=== PATIENT | female | born 1960 | race Caucasian/White ===

== ENCOUNTER → 2016-07-02 | Outpatient (CLI) | payer BC ==
[~2016-07-02] MED LIST: ASPCH81X PO; OMEG10007 PO; PEDICHW44 PO
--- NOTE | 2016-07-03 13:45 | MAMMOGRAPHY REPORT ---
BILATERAL DIGITAL SCREENING MAMMOGRAM TOMOSYNTHESIS WITH CAD: 07/02/2016 CLINICAL HISTORY: Routine screening. Patient has no complaints. TECHNIQUE: Breast tomosynthesis in addition to standard 2D mammography was performed. Current study was also evaluated with a Computer Aided Detection (CAD) system. COMPARISON: Comparison is made to exams dated: 06/01/2014 mammogram, 02/08/2013 mammogram - [facility], 08/21/2006, and 08/23/2007. BREAST COMPOSITION: There are scattered areas of fibroglandular density in both breasts. FINDINGS: There is a nodular 7 mm asymmetry seen within the right lateral breast at approximately 9 :00, best seen on the cc view. Recommend spot compression tomosynthesis views and possible breast u ltrasound for further evaluation. The remainder of both breasts are stable compared to prior exams, without suspicious masses, calcifi cations, or areas of architectural distortion noted. IMPRESSION: ACR BI-RADS CATEGORY 0: INCOMPLETE EVALUATION: NEED ADDITIONAL IMAGING EVALUATION Right breast asymmetry, for which additional imaging evaluation is recommended. The patient will be called to schedule an appointment. Approximately 10% of breast cancers are not detected with mammography. A negative mammographic repor t should not delay biopsy if a clinically suggestive mass is present. Zenobia Gupta M.D. ah/:07/02/2016 15:47:21 Resource Paraprofessional: Marta ARAIZA)(M), [facility] letter sent: Addl Imaging 0 BI-RADS Code: ACR BI-RADS Category 0: Incomplete Evaluation: Need Additional Imaging Evaluation
== END | disposition home or self-care (01) ==
LOC: C.MAMM 07:46
PROVIDERS: ATTEND Nurse Practitioner
DX: Z12.31 Encounter for screening mammogram for malignant neoplasm of breast (principal); N64.89 Other specified disorders of breast

== ENCOUNTER → 2016-07-07 | Day surgery (SDC) | payer BC ==
[2016-06-19 11:50] VITALS: Ht 165.1 cm; Wt 83.6 kg
[~2016-07-07] VITALS: Ht 165.1 cm; Wt 83.6 kg
[~2016-07-07] MED LIST changes: +LIDOCAINE HCL 2% 2 ML VIAL (20MG/ML) ONE; +MIDAZOLAM HCL 1 MG/ML 2ML VIAL ONE; +ONDANSETRON INJ 2 MG/ML 2 ML VIAL ONE; +PROPOFOL IV EMULSION 10 MG/ML 20 ML VIAL IV ONE; +SODIUM CHLORIDE 0.9% 500ML 500 ML IV ONE
[2016-07-07 09:37] VITALS: TEMP 36.8
--- NOTE | 2016-07-07 09:52 | Endo History and Physical ---
History & Physical Date of Service: Jul 07, 2016. Chief Complaint: Screening Referring Physician: Jinny Kirkpatrick History of Present Illness 55 yo CF who presents for screening colonoscopy. Past Surgical History Hx Cardiac Surgery: No Hx Internal Defibrillator: No Hx Pacemaker: No Hx Abdominal Surgery: Yes (TUBAL LIGATION, LAP CHOLEY) Hx of Implantable Prosthesis: No Hx Post-Op Nausea and Vomiting: No Hx Cancer Surgery: No Hx Thoracic Surgery: Yes (LUNG BIOPSY) Hx Orthopedic: No Hx Urinary Tract Surgery: No Family History None Social History Smoking Status: Never Smoker Hx Substance Use: No Hx Alcohol Use: Yes (OCCASSIONALLY) Allergies Coded Allergies: No Known Allergies (Verified , 06/19/16) Current Medications Reported Home Medications Medications Dose Route/Sig Max Daily Dose Days Date Category Aspirin Chewable (Aspirin) 81 Mg Chew 81 Mg PO QAM 06/19/16 Reported Flintstones Plus Iron (Pediatric Multiple Vitamins W/) 1 Chw Chw 1 Tab PO QAM 06/19/16 Reported [place]-3 (Fish Oil) 1 Ea Cap 1 Cap PO QAM 06/19/16 Reported Vital Signs Weight (Kilograms): 83.64 Height (Feet): 5 Height (Inches): 5 Date Time Temp Pulse Resp B/P Pulse Ox O2 Delivery O2 Flow Rate FiO2 07/07/16 09:37 36.8 80 20 135/78 98 Room Air Physical Exam General Appearance: WD/WN, no apparent distress Respiratory/Chest: Auscultation: breath sounds normal Cardiovascular: Heart Auscultation: RRR Abdomen: Bowel Sounds: normal Inspection & Palpation: soft, non-distended, no tenderness, guarding & rebound Assessment and Plan Assessment: 55 yo CF who presents for screening colonoscopy. Plan: Proceed with colonoscopy.
--- NOTE | 2016-07-07 10:09 | Discharge Instructions ---
Endoscopy Patient Instructions Date / Procedure(s) Performed Jul 07, 2016. Colonoscopy Allergy Information Coded Allergies: No Known Allergies (Verified , 06/19/16) Discharge Date / Findings Jul 07, 2016. Diverticulosis Internal hemorrhoids Medication Instructions Stopped Medication(s): ASA, Vitamins OK to resume all medications today as prescribed. Reported Home Medications Medications Dose Route/Sig Max Daily Dose Days Date Category Aspirin Chewable (Aspirin) 81 Mg Chew 81 Mg PO QAM 06/19/16 Reported Flintstones Plus Iron (Pediatric Multiple Vitamins W/) 1 Chw Chw 1 Tab PO QAM 06/19/16 Reported [place]-3 (Fish Oil) 1 Ea Cap 1 Cap PO QAM 06/19/16 Reported Provider Instructions Activity Restrictions - No exercising or heavy lifting for 24 hours. - Do not drink alcohol the day of the procedure. - Do not drive a car or operate machinery until the day after the procedure. - Do not make any important decisions or sign important papers in 24 hours after the procedure. Following Day: - Return to full activity which may include returning to work/school. Diet Start your diet with liquids and light foods (jello, soup, juice, toast). Then eat your usual diet if not nauseated. Treatment For Common After Affects For mild abdominal pain, bloating, or excessive gas: - Rest - Eat lightly - Lie on right side Follow-Up Information Follow-up with Jinny Kirkpatrick as scheduled Anesthesia Information What You Should Know You have had a procedure that required some medicine to reduce anxiety and discomfort. This treatment is called moderate sedation. After receiving the treatment, you may be sleepy, but you will be able to breathe on your own. The effects of the treatment may last for several hours. Follow these instructions along with Activity/Diet recommendations noted above: * Do NOT do anything where dizziness or clumsiness would be dangerous. * Rest quietly at home today, then you can be up and about tomorrow. * Have a responsible person stay with you the rest of today. * You may have had an I.V. today. If so, you may take the dressing off later today. Recommendations Call your doctor if: * Trouble breathing * Continuous vomiting for more than 24 hours * Temperature above 101 degrees * Severe abdominal pain or bloating * Pain not relieved by pain medicine ordered * There is increased drainage or redness from any incision * A large amount of rectal bleeding greater than 2-3 tablespoons. (If you had a polyp/s removed or have hemorrhoids, a small amount of blood - from the rectum is to be expected.) * You have any unanswered questions or concerns. IN THE EVENT OF A SERIOUS EMERGENCY, GO TO THE NEAREST EMERGENCY ROOM Your discharge instructions were prepared by provider Gray Bernal. Patient Instructions Signature Page Darline Mancini Patient (or Guardian) Signature/Date: I have read and understand the instructions given to me by my caregivers. Caregiver/RN/Doctor Signature/Date: The above-named patient and/or guardian has received patient instructions on this date. + Original Patient Signature Page (only) stays with chart. Please make copy for patient.
--- NOTE | 2016-07-07 10:12 | GI REPORT ---
Procedure Date: 07/07/2016 9:17 AM Procedure: Colonoscopy Indications: Screening for colorectal malignant neoplasm Medicines: Monitored Anesthesia Care Complications: No immediate complications. Estimated Blood Loss: Estimated blood loss: none. Procedure: Pre-Anesthesia Assessment: - Prior to the procedure, a History and Physical was performed, and patient medications and allergies were reviewed. The patient's tolerance of previous anesthesia was also reviewed. The risks and benefits of the procedure and the sedation options and risks were discussed with the patient. All questions were answered, and informed consent was obtained. Prior Anticoagulants: The patient has taken aspirin, last dose was 7 days prior to procedure. ASA Grade Assessment: II - A patient with mild systemic disease. After reviewing the risks and benefits, the patient was deemed in satisfactory condition to undergo the procedure. After I obtained informed consent, the scope was passed under direct vision. Throughout the procedure, the patient's blood pressure, pulse, and oxygen saturations were monitored continuously. The scope was introduced through the anus and advanced to the terminal ileum. The colonoscopy was performed without difficulty. The patient tolerated the procedure well. The quality of the bowel preparation was good. The terminal ileum, ileocecal valve, appendiceal orifice, and rectum were photographed. Findings: Multiple small-mouthed diverticula were found in the sigmoid colon. Non-bleeding internal hemorrhoids were found during retroflexion. The hemorrhoids were small. Impression: - Diverticulosis in the sigmoid colon. - Non-bleeding internal hemorrhoids. - No specimens collected. Recommendation: - Resume previous diet. - Continue present medications. - Repeat colonoscopy in 10 years for surveillance based on pathology results. - Return to primary care physician as previously scheduled. Gray Bernal DO 07/07/2016 10:10:43 AM This report has been signed electronically. Note Initiated On: 07/07/2016 9:17 AM
[2016-07-07 10:44] VITALS: BP 124/73; PULSE 68; O2SAT 67
--- NOTE | 2016-07-07 11:20 | Anesthesiology Progress Note ---
Anesthesia Post Op Note Date & Time Jul 07, 2016 at 11:19 Vital Signs Pain Intensity: 0 Vital Signs Past 12 Hours Date Time Temp Pulse Resp B/P Pulse Ox O2 Delivery O2 Flow Rate FiO2 07/07/16 10:44 68 20 124/73 67 Room Air 07/07/16 10:29 65 20 112/59 65 Room Air 07/07/16 10:12 100 20 102/51 98 Room Air 07/07/16 09:37 36.8 80 20 135/78 98 Room Air Notes Mental Status: alert / awake / arousable, participated in evaluation Pt Amnestic to Procedure: Yes Nausea / Vomiting: adequately controlled Pain: adequately controlled Airway Patency, RR, SpO2: stable & adequate BP & HR: stable & adequate Hydration State: stable & adequate Anesthetic Complications: no major complications apparent
== END | disposition home or self-care (01) ==
LOC: C.GI 08:44
PROVIDERS: ATTEND Internal Medicine
DX: Z12.11 Encounter for screening for malignant neoplasm of colon (principal); K57.30 Diverticulosis of large intestine without perforation or abscess without bleeding; K64.8 Other hemorrhoids; Z98.51 Tubal ligation status; Z90.49 Acquired absence of other specified parts of digestive tract; Z68.30 Body mass index [BMI] 30.0-30.9, adult

== ENCOUNTER → 2016-07-09 | Outpatient (CLI) | payer BC ==
[~2016-07-09] MED LIST changes: -LIDOCAINE HCL 2% 2 ML VIAL (20MG/ML) ONE; -MIDAZOLAM HCL 1 MG/ML 2ML VIAL ONE; -ONDANSETRON INJ 2 MG/ML 2 ML VIAL ONE; -PROPOFOL IV EMULSION 10 MG/ML 20 ML VIAL IV ONE; -SODIUM CHLORIDE 0.9% 500ML 500 ML IV ONE
--- NOTE | 2016-07-09 13:59 | MAMMOGRAPHY REPORT ---
UNILATERAL RIGHT DIGITAL DIAGNOSTIC MAMMOGRAM TOMOSYNTHESIS AND TARGETED RIGHT ULTRASOUND: 07/09/2016 CLINICAL HISTORY: Callback from screening mammogram for right breast asymmetry. TECHNIQUE: Breast tomosynthesis in addition to standard 2D mammography was performed. Spot abdon opal Right CC and MLO 2-D and tomosynthesis images were obtained. COMPARISON: Comparison is made to exams dated: 07/02/2016 mammogram, 06/01/2014 mammogram, 02/08/2013 ammogram - [facility], and 08/23/2007. BREAST COMPOSITION: There are scattered areas of fibroglandular density in the right breast. FINDINGS: The previously described 11 mm asymmetry seen within the right 8 to 9:00 breast posteriorl y, best seen on the cc view, persists on the spot compression views. The asymmetry is equal in dens ity to the other fibroglandular tissue seen within the breast. No architectural distortion or other suspicious associated finding is noted. Fat is seen interspersed with the asymmetry, suggesting th at it may represent normal fibroglandular tissue which may increased in conspicuity due to differenc es in mammographic technique. Targeted ultrasound was performed of the right 10:00 breast, in the region of the mammographic asymm etry. Sonographically normal tissue is seen, without evidence of a mass or other suspicious sonogra phic abnormality. No sonographic correlate for the mammographic asymmetry is seen. IMPRESSION: ACR-BI-RADS CATEGORY 3: PROBABLY BENIGN, TARGETED ULTRASOUND ACR-BI-RADS CATEGORY 3: MA OBABLY BENIGN The right lateral breast asymmetry persists on the additional views, without corresponding sonograph ic abnormality evident. The asymmetry is probably benign and likely represents normal fibroglandula r tissue. Recommend follow-up diagnostic mammograms and possible ultrasound of the right breast in 6 months to confirm stability. The patient has been verbally notified of the results. Approximately 10% of breast cancers are not detected with mammography. A negative mammographic repor t should not delay biopsy if a clinically suggestive mass is present. Zenobia Gupta M.D. ah/:07/09/2016 12:06:21 Crystallographer: Sara SALAMANCA(R)(M), [facility] letter sent: Follow Up Recommended 3 BI-RADS Code: ACR-BI-RADS Category 3: Probably Benign Ultrasound BI-RADS: ACR-BI-RADS Category 3: P robably Benign
== END | disposition home or self-care (01) ==
LOC: C.MAMM 11:24
PROVIDERS: ATTEND Nurse Practitioner
DX: R92.8 Other abnormal and inconclusive findings on diagnostic imaging of breast (principal)

== ENCOUNTER → 2017-01-06 | Outpatient (CLI) | payer BC ==
--- NOTE | 2017-01-06 15:39 | MAMMOGRAPHY REPORT ---
UNILATERAL RIGHT DIGITAL DIAGNOSTIC MAMMOGRAM TOMOSYNTHESIS WITH CAD AND TARGETED RIGHT ULTRASOUND: CLINICAL HISTORY: Patient presents for follow-up of an asymmetry in the lateral right breast. TECHNIQUE: Right breast CC and MLO 2-D digital and tomosynthesis images were obtained. Current stud y was also evaluated with a Computer Aided Detection (CAD) system. COMPARISON: Comparison is made to exams dated: 07/09/2016 ultrasound, 07/09/2016 mammogram, 07/02/2016 m ammogram, 06/01/2014 mammogram, 02/08/2013 mammogram - [facility], and 08/23/2007. BREAST COMPOSITION: There are scattered areas of fibroglandular density in the right breast. FINDINGS: There is persistence of an 8 x 4 mm nodular asymmetry in the lateral, middle one third of the right breast on the CC view, which appears slightly more elongated but similar in size comparing to the mammograms performed 07/02/2016. The asymmetry at that time measured 6.4 x 3.1 mm but measure ment differences may be positional. There is no associated architectural distortion or microcalcific ation. No new suspicious mass, architectural distortion or cluster of suspicious microcalcifications is seen throughout the remainder of the right breast. Targeted ultrasound was performed about the lateral right breast. Normal fibroglandular tissue is se en without a discrete solid or cystic mass. IMPRESSION: ACR-BI-RADS CATEGORY 3: PROBABLY BENIGN, TARGETED ULTRASOUND ACR-BI-RADS CATEGORY 3: PRO BABLY BENIGN There is a persistent 8 x 4 mm nodular asymmetry in the lateral right breast, without sonographic cor relate identified. This appears slightly more prominent than on the 07/02/2016 mammograms, although the differences may be positional. Options of breast MRI for definitive evaluation versus another ort follow-up diagnostic mammogram/ultrasound were discussed with the patient. She prefers another hort follow-up at this time, and she scheduled a follow-up appointment prior to leaving the [facility] t. Bilateral mammography will be due at that time. Approximately 10% of breast cancers are not detected with mammography. A negative mammographic report should not delay biopsy if a clinically suggestive mass is present. Billie Grover M.D. ay/:01/06/2017 14:47:55 Chip Mixing Machine Operator: Norma SALAMANCA(Theresa)(M), [facility] letter sent: Follow Up Recommended 3 BI-RADS Code: ACR-BI-RADS Category 3: Probably Benign Ultrasound BI-RADS: ACR-BI-RADS Category 3: Pr obably Benign
== END | disposition home or self-care (01) ==
LOC: C.MAMM 08:29
PROVIDERS: ATTEND Nurse Practitioner
DX: N64.89 Other specified disorders of breast (principal)

== ENCOUNTER → 2017-04-14 | Outpatient (CLI) | payer BC ==
[2017-04-14 13:30] LABS: ESTIMATED AVERAGE GLUCOSE 148 mg/dl; HA1C FLAG Normal (Normal)
[2017-04-14 14:11] LABS: BLOOD UREA NITROGEN 11 mg/dl (7-18); BUN/CREATININE RATIO 13.4 (10-20); CARBON DIOXIDE 27 mmol/L (21-32); CHLORIDE 107 mmol/L (98-107); CREATININE 0.85 mg/dl (0.60-1.20); GLUCOSE 149 mg/dl (70-99); POTASSIUM 4.1 mmol/L (3.5-5.1); SODIUM 140 mmol/L (136-145)
== END | disposition home or self-care (01) ==
LOC: C.LABPVFM 07:33
PROVIDERS: ATTEND Nurse Practitioner
DX: E11.9 Type 2 diabetes mellitus without complications (principal)

== ENCOUNTER → 2017-04-16 | Outpatient (CLI) | payer BC | END | disposition home or self-care (01) | LOC: C.LABPVFM 16:14 | PROVIDERS: ATTEND Nurse Practitioner | DX: E11.9 Type 2 diabetes mellitus without complications (principal); R53.83 Other fatigue; R63.5 Abnormal weight gain ==

== ENCOUNTER → 2017-07-09 | Outpatient (CLI) | payer OTHER ==
--- NOTE | 2017-07-09 14:40 | MAMMOGRAPHY REPORT ---
BILATERAL DIGITAL DIAGNOSTIC MAMMOGRAM TOMOSYNTHESIS WITH CAD: 07/09/2017 CLINICAL HISTORY: Six-month follow-up of right breast asymmetry. Due for routine mammography of the left breast. TECHNIQUE: Breast tomosynthesis in addition to standard 2D mammography was performed. Current study was also evaluated with a Computer Aided Detection (CAD) system. Bilateral CC and MLO 2-D and tomosy nthesis images were obtained. COMPARISON: Comparison is made to exams dated: 01/06/2017 ultrasound, 01/06/2017 mammogram, 07/09/2016 ultrasound, 07/09/2016 mammogram, 07/02/2016 mammogram, and 02/08/2013 mammogram - [facility]. BREAST COMPOSITION: There are scattered areas of fibroglandular density in both breasts. FINDINGS: The previously described nodular asymmetry seen within the right lateral breast on the cc view is decreased in size compared to the prior exam, currently measuring 4 x 4 mm, previously measur ing 8 x 4 mm when measuring with a similar technique. Given the decrease in size, the mass is consid ered benign and may represent a resolving cyst. The remainder of both breasts are stable compared to prior exams, without suspicious masses, calcifications, or areas of architectural distortion noted. Focal asymmetry in the right upper outer quadrant is stable dating back to at least the 2012 exam, a nd has the appearance of fibroglandular tissue on the tomosynthesis images. IMPRESSION: ACR BI-RADS CATEGORY 2: BENIGN The right lateral breast asymmetry is decreased in size compared to prior exams, and is considered be nign and may represent a decreasing cyst or other benign mass. There is no mammographic evidence of malignancy in either breast. A 1 year screening mammogram is recommended. The patient has been verba lly notified of the results. Approximately 10% of breast cancers are not detected with mammography. A negative mammographic report should not delay biopsy if a clinically suggestive mass is present. Zenobia Gupta M.D. /:07/09/2017 09:11:27 Sap Basis Administrator: Sara SALAMANCA(R)(M), [facility] letter sent: Normal 1/2 BI-RADS Code: ACR BI-RADS Category 2: Benign
== END | disposition home or self-care (01) ==
LOC: C.MAMM 08:45
PROVIDERS: ATTEND Nurse Practitioner
DX: R92.8 Other abnormal and inconclusive findings on diagnostic imaging of breast (principal)

== ENCOUNTER 2017-09-03 16:08 | Emergency (ER) | payer OTHER ==
[~2017-09-03] VITALS: Ht 165.1 cm; Wt 91.2 kg
[2017-09-03 16:11] VITALS: Ht 165.1 cm; Wt 91.2 kg
[2017-09-03] MEDS ORDERED: KETOROLAC TROMETHAMINE 15 MG/ML VIAL IV STA (16:27)
[2017-09-03] MEDS ORDERED: KETOROLAC TROMETHAMINE 30 MG/ML VIAL ONE (16:34)
[2017-09-03] MEDS ORDERED: OPTIRAY 320 IV PRN (16:45)
[2017-09-03 17:06] LABS: BASO % 0.3 %; BASO ABS # 0.03 K/uL (0-0.2); EOS % 1.3 %; EOS ABS # 0.14 K/uL (0-0.5); HEMATOCRIT 38.8 % (37-47); IG# 0.02 K/uL (0.00-0.02); LYMPH % 14.2 %; LYMPH ABS # 1.51 K/uL (1.2-3.4); MEAN CELL VOLUME 81.3 fL (80-100); MEAN CORPUSCULAR HEMOGLOBIN 29.4 pg (25-34); MEAN CORPUSCULAR HGB CONC 36.1 g/dl (32-36); MEAN PLATELET VOLUME 9.3 fL (7.4-10.4); MONO % 8.3 %; MONO ABS # 0.88 K/uL (0.11-0.59); NEUT % 75.7 %; NEUT ABS # 8.05 K/uL (1.4-6.5); PLATELET COUNT 258 K/uL (130-400); RED CELL DISTRIBUTION WIDTH CV 12.7 % (11.5-14.5); RED CELL DISTRIBUTION WIDTH SD 38.2 fL (36.4-46.3); WHITE BLOOD COUNT 10.63 K/uL (4.8-10.8)
[2017-09-03 17:35] LABS: ALBUMIN 4.1 gm/dl (3.4-5.0); CALCIUM 9.4 mg/dl (8.5-10.1); CREATININE 0.9 mg/dl (0.60-1.20); POTASSIUM 3.5 mmol/L (3.5-5.1)
[2017-09-03 17:36] LABS: TOTAL PROTEIN 8.1 gm/dl (6.4-8.2)
--- NOTE | 2017-09-03 18:07 | DIAGNOSTIC IMAGING REPORT ---
CT SCAN OF THE ABDOMEN AND PELVIS WITH IV CONTRAST CLINICAL HISTORY: Left-sided abdominal pain. COMPARISON STUDY: No priors. TECHNIQUE: Following the IV administration of 120 cc of Optiray 320, CT scan of the abdomen and pelvis is performed from the lung bases to the proximal femora. Images are reviewed in the axial, sagittal, and coronal planes. IV contrast was administered without complication. A dose lowering technique was utilized adhering to the principles of ALARA. CT DOSE: 692.85 mGy.cm FINDINGS: Lung bases: The heart is normal in size and without pericardial effusion. The lung bases are clear. Liver: The contrast-enhanced liver is mildly enlarged, measuring 18.6 cm in length. The liver demonstrates diminished attenuation consistent with hepatic steatosis. There is mild central intrahepatic biliary ductal dilatation. The hepatic veins and portal veins are patent. Gallbladder: Surgically absent noting clips in the gallbladder fossa. Spleen: Normal in size and attenuation. Pancreas: Unremarkable. Adrenal glands: Unremarkable. Kidneys: The contrast enhanced kidneys are normal in size and without hydronephrosis. The kidneys enhance symmetrically. Abdominal vasculature: The abdominal aorta is normal in course and caliber. Bowel: There is mild diverticulosis of the left colon. There is wall thickening with pericolonic inflammation and fluid seen involving the mid descending colon consistent with acute diverticulitis. There is no evidence of abscess. No bowel obstruction is seen. Mild colonic fecal retention is observed. The appendix is well-visualized and normal. Peritoneum: There is no intraperitoneal free air or abdominal ascites. There is a fat-containing umbilical hernia. Lymphadenopathy: None. Pelvic viscera: The bladder is normal as visualized. Numerous uterine fibroids are suggested. No adnexal lesion is seen. There is trace free fluid in the cul-de-sac. Skeletal structures: No lytic or blastic lesions are seen. IMPRESSION: 1. There is mild diverticulosis of the left colon with evidence of acute diverticulitis involving the mid descending colon. No intraperitoneal free air is seen and there is no evidence of abscess. 2. Hepatomegaly and hepatic steatosis. 3. Fibroid uterus. 4. Trace free fluid in the cul-de-sac is likely within physiologic limits. Electronically signed by: Rom Martin M.D. 09/03/2017 6:06 PM Dictated Date/Time: 09/03/2017 6:00 PM
[2017-09-03] MEDS ORDERED: METR-163 PO (18:23)
[2017-09-03] MEDS ORDERED: CIPR-255 PO (18:23)
--- NOTE | 2017-09-03 18:26 | EMERGENCY ROOM VISIT NOTE ---
History First contact with patient: 16:14 Chief Complaint: ABDOMINAL PAIN Stated Complaint: ABDOMINAL PAIN LEFT SIDE MORE ON FLANK SIDE Nursing Triage Summary: "Yesterday, after lunch, I felt uncomfortable. This morning when I woke up, I had some pain in my left side. It has gotten more severe as the day has gone on. My PCP sent me here for possible diverticulitis. I have never had that before though." Patient denies any nausea, vomiting, diarrhea. Decreased appetite today. History of Present Illness The patient is a 56 year old female who presents to the Emergency Room with complaints of abdominal pain. Patient states that she has had left-sided abdominal discomfort which started yesterday a few hours after eating. She states the pain has gradually worsened throughout the day today. The pain is located on the left side of her abdomen. She states that the discomfort is a 3/ 10 with sitting, but increases to a 9/10 with any moving or bending. She states the pain is an aching sensation. She denies any associated nausea/ vomiting, changes in bowel movements, dysuria or fever. She does note that she feels she may have increased frequency of urination. She denies any history of similar symptoms. She has had a decreased appetite but has been able to tolerate small meals. She states that she feels bloated. She denies any history of abdominal surgeries or abdominal issues. Review of Systems A complete 10 point review of systems was reviewed with the patient with pertinent positives and negatives as per history of present illness. All else were negative. Past Medical/Surgical History Medical Problems: (1) Borderline diabetes Social History Smoking Status: Never Smoker Occupation Status: employed Current/Historical Medications Scheduled Aspirin (Aspirin Chewable), 81 MG PO QAM Ciprofloxacin Hcl (Cipro), 500 MG PO BID Fish Oil (Evergreen-3), 1 CAP PO QAM Metronidazole (Flagyl), 500 MG PO TID Pediatric Multiple Vitamins W/ (Flintstones Plus Iron), 1 TAB PO QAM Physical Exam Vital Signs Date Time Temp Pulse Resp B/P (MAP) Pulse Ox O2 Delivery O2 Flow Rate FiO2 09/03/17 19:09 37.0 99 16 127/75 99 09/03/17 18:02 102 18 136/85 98 Room Air 09/03/17 16:11 36.9 105 20 153/86 97 Room Air Physical Exam VITALS: Vitals are noted on the nurse's note and reviewed by myself. Vital signs stable. GENERAL: This is a 56-year-old female, in no acute distress, nondiaphoretic, well-developed well-nourished. SKIN: The skin was without rashes. EARS: External auditory canals clear, tympanic membranes pearly osuna without erythema or effusion bilaterally. EYES: Pupils equal round and reactive to light and accommodation. MOUTH: Mucous membranes moist. NECK: Supple without nuchal rigidity. HEART: Regular rate and rhythm without murmurs gallops or rubs. LUNGS: Clear to auscultation bilaterally without wheezes, rales or rhonchi. ABDOMEN: Positive bowel sounds x 4. The abdomen is soft and nondistended. There is tenderness to palpation in the left lower to mid abdomen and left flank. No guarding or rebound tenderness. NEURO: Patient was alert and oriented to person place and time. Medical Decision & Procedures ER Provider Diagnostic Interpretation: CT SCAN OF THE ABDOMEN AND PELVIS WITH IV CONTRAST IMPRESSION: 1. There is mild diverticulosis of the left colon with evidence of acute diverticulitis involving the mid descending colon. No intraperitoneal free air is seen and there is no evidence of abscess. 2. Hepatomegaly and hepatic steatosis. 3. Fibroid uterus. 4. Trace free fluid in the cul-de-sac is likely within physiologic limits. Laboratory Results 09/03/17 16:42 Red Blood Count 4.77, Mean Corpuscular Volume 81.3, Mean Corpuscular Hemoglobin 29.4, Mean Corpuscular Hemoglobin Concent 36.1, Mean Platelet Volume 9.3, Neutrophils (%) (Auto) 75.7, Lymphocytes (%) (Auto) 14.2, Monocytes (%) (Auto) 8.3, Eosinophils (%) (Auto) 1.3, Basophils (%) (Auto) 0.3, Neutrophils # (Auto) 8.05, Lymphocytes # (Auto) 1.51, Monocytes # (Auto) 0.88, Eosinophils # (Auto) 0.14, Basophils # (Auto) 0.03 09/03/17 16:42 Test 09/03/17 16:42 White Blood Count 10.63 K/uL (4.8-10.8) Red Blood Count 4.77 M/uL (4.2-5.4) Hemoglobin 14.0 g/dL (12.0-16.0) Hematocrit 38.8 % (37-47) Mean Corpuscular Volume 81.3 fL (80-100) Mean Corpuscular Hemoglobin 29.4 pg (25-34) Mean Corpuscular Hemoglobin Concent 36.1 g/dl (32-36) Platelet Count 258 K/uL (130-400) Mean Platelet Volume 9.3 fL (7.4-10.4) Neutrophils (%) (Auto) 75.7 % Lymphocytes (%) (Auto) 14.2 % Monocytes (%) (Auto) 8.3 % Eosinophils (%) (Auto) 1.3 % Basophils (%) (Auto) 0.3 % Neutrophils # (Auto) 8.05 K/uL (1.4-6.5) Lymphocytes # (Auto) 1.51 K/uL (1.2-3.4) Monocytes # (Auto) 0.88 K/uL (0.11-0.59) Eosinophils # (Auto) 0.14 K/uL (0-0.5) Basophils # (Auto) 0.03 K/uL (0-0.2) RDW Standard Deviation 38.2 fL (36.4-46.3) RDW Coefficient of Variation 12.7 % (11.5-14.5) Immature Granulocyte % (Auto) 0.2 % Immature Granulocyte # (Auto) 0.02 K/uL (0.00-0.02) Urine Color YELLOW Urine Appearance CLOUDY (CLEAR) Urine pH 6.5 (4.5-7.5) Urine Specific [place] 1.009 (1.000-1.030) Urine Protein NEG (NEG) Urine Glucose (UA) NEG (NEG) Urine Ketones NEG (NEG) Urine Occult Blood 1+ (NEG) Urine Nitrite NEG (NEG) Urine Bilirubin NEG (NEG) Urine Urobilinogen NEG (NEG) Urine Leukocyte Esterase LARGE (NEG) Urine WBC (Auto) >30 /hpf (0-5) Urine RBC (Auto) 0-4 /hpf (0-4) Urine Hyaline Casts (Auto) 1-5 /lpf (0-5) Urine Epithelial Cells (Auto) >30 /lpf (0-5) Urine Bacteria (Auto) 1+ (NEG) Anion Gap 5.0 mmol/L (3-11) Est Creatinine Clear Calc Drug Dose 76.0 ml/min Estimated GFR () 81.7 Estimated GFR (Non- 70.5 BUN/Creatinine Ratio 13.3 (10-20) Calcium Level 9.4 mg/dl (8.5-10.1) Total Bilirubin 0.4 mg/dl (0.2-1) Direct Bilirubin 0.1 mg/dl (0-0.2) Aspartate Amino Transf (AST/SGOT) 12 U/L (15-37) Alanine Aminotransferase (ALT/SGPT) 32 U/L (12-78) Alkaline Phosphatase 105 U/L (45-117) Total Protein 8.1 gm/dl (6.4-8.2) Albumin 4.1 gm/dl (3.4-5.0) Lipase 149 U/L (73-393) Medications Administered Medications (Trade) Dose Ordered Sig/Shawn Route Start Time Stop Time Status Last Admin Dose Admin Ketorolac Tromethamine (Toradol Inj) 30 mg STK-MED ONCE .ROUTE 09/03/17 16:34 09/03/17 16:35 DC 09/03/17 16:46 15 MG Ciprofloxacin (Cipro 500MG Home Pack) 1 homepack UD ONCE PO 09/03/17 18:45 09/03/17 18:46 DC 09/03/17 19:04 1 HOMEPACK Metronidazole (Flagyl Tab) 1,000 mg NOW STAT PO 09/03/17 18:31 09/03/17 18:33 DC 09/03/17 19:04 1,000 MG Medical Decision Differential diagnosis includes diverticulitis, colitis, bowel obstruction, kidney stone, pyelonephritis, among others. The patient is a 56-year-old female who presents today complaining of left- sided abdominal pain. Labs revealed no leukocytosis, anemia or concerning electrolyte abnormalities. Urinalysis was suggestive of contamination and will be sent for culture. CT of the abdomen and pelvis showed findings consistent with acute diverticulitis without complication. Patient will be placed on ciprofloxacin and Flagyl. Conservative measures were discussed. She was advised to follow-up with her primary care provider. Based on the patient's presentation and work up, I feel the patient is stable for outpatient treatment. The patient was educated to return to the emergency department for any worsening of their current condition or new/concerning symptoms. She will follow up with her PCP. Medication Reconcilliation Current Medication List: was personally reviewed by me Blood Pressure Screening Patient's blood pressure: Normal blood pressure Impression Primary Impression: Acute diverticulitis Departure Information Dispostion Home / Self-Care Condition GOOD Prescriptions Metronidazole (Flagyl) 500 Mg Tab 500 MG PO TID for 10 Days, #30 TAB Prov: Yamileth Christianson PA-C 09/03/17 Ciprofloxacin Hcl (CIPRO) 500 Mg Tab 500 MG PO BID for 10 Days, #20 TAB Prov: Yamileth Christianson PA-C 09/03/17 Referrals Jinny Curry C.R.N.P (PCP) Patient Instructions My [facility] Additional Instructions You were prescribed Flagyl to be taken 3 times daily as prescribed. This is an antibiotic. All antibiotics have the potential to cause diarrhea. Stop this medication and contact a medical provider if you were to develop any significant adverse side effects including: wheezing, shortness of breath, passing out, vomiting, or a diffuse rash. Always take antibiotics as directed and COMPLETE the ENTIRE course regardless of the improvement of your symptoms. Do not drink any alcohol with this medication, as it will cause severe nausea and vomiting. You were prescribed ciprofloxacin to be taken as prescribed. This is an antibiotic. All antibiotics have the potential to cause diarrhea. Stop this medication and contact a medical provider if you were to develop any significant adverse side effects including: wheezing, shortness of breath, passing out, vomiting, or a diffuse rash. Always take antibiotics as directed and COMPLETE the ENTIRE course regardless of the improvement of your symptoms. For pain control, you can use the following [id number] medicines (if >12 yo): - Regular strength (325mg/tab) Tylenol (acetaminophen) 2 tabs every 4-6 hours as needed. Do not exceed 12 tablets in a 24 hour period. Avoid taking more than 4 grams (4000 mg) of Tylenol per day. This includes any other sources of acetaminophen you may take on a regular basis. - Regular strength (200 mg/tab) Advil (ibuprofen) 1-2 tabs every 4-6 hours as needed. Do not exceed a dose of 3200 mg per day. You may want to keep a clear liquid diet for the next 48 hours and then advance as symptoms improve. Return to the ED with worsening pain, vomiting, fever or other new/concerning symptoms.
[2017-09-03] MEDS ORDERED: METRONIDAZOLE 250 MG TAB PO STA (18:31)
[2017-09-03] MEDS ORDERED: CIPROFLOXACIN 500MG HOME PACK PO ONE (18:45)
[2017-09-03 19:09] VITALS: BP 127/75; PULSE 99; TEMP 37; O2SAT 99
== END 2017-09-03 19:05 | disposition home or self-care (01) ==
LOC: C.EDB 16:09 → C.EDA 19:05
DX: K57.32 Diverticulitis of large intestine without perforation or abscess without bleeding (principal); R73.03 Prediabetes; Z79.82 Long term (current) use of aspirin